=== PATIENT | female | born 1970 | race Caucasian/White ===

== ENCOUNTER → 2016-08-18 | Outpatient (CLI) | payer BC | END | disposition home or self-care (01) | LOC: CFH 15:24 | PROVIDERS: ATTEND Nurse Practitioner | DX: R06.02 Shortness of breath (principal) | CPT/HCPCS: 71250 ==

== ENCOUNTER 2016-11-06 09:35 | Emergency (ER) | payer BC ==
[~2016-11-06] VITALS: Ht 165.1 cm; Wt 97.6 kg
[2016-11-06] MEDS ORDERED: FLUT1AER INH (10:21)
[2016-11-06] MEDS ORDERED: VENL150C PO (10:21)
[2016-11-06] MEDS ORDERED: SODIUM CHLORIDE 0.9% 1,000ML IVBOLUS ONE (10:30)
[2016-11-06] MEDS ORDERED: SODIUM CHLORIDE FLUSH 10ML SYR IVF ONE (10:30)
[2016-11-06 10:42] LABS: HEMATOCRIT 44.4 % (34.6-47.8); HEMOGLOBIN 14.9 g/dL (11.7-16.4); WHITE BLOOD COUNT 16.3 x10^3/uL (3.4-10)
[2016-11-06 10:55] LABS: BLOOD UREA NITROGEN 14 mg/dL (7-18)
[2016-11-06] MEDS ORDERED: ONDANSETRON 2MG/ML, 2ML IVPush ONE (11:00)
[2016-11-06] MEDS ORDERED: methylPREDNISolone SOD SUCC 125 MG/2 ML IVPush ONE (11:00)
[2016-11-06] MEDS ORDERED: ALBUTEROL/IPRATROPIUM 2.5MG/0.5MG, 3 ML NPPB ONE (11:00)
[2016-11-06 11:01] LABS: ASPARTATE AMINO TRANSFERASE 19 U/L (15-37)
[2016-11-06] MEDS ORDERED: methylPREDNISolone SOD SUCC 125 MG/2 ML ONE (11:15)
[2016-11-06] MEDS ORDERED: ONDANSETRON 2MG/ML, 2ML ONE (11:16)
[2016-11-06] MEDS ORDERED: ALBUTEROL/IPRATROPIUM 2.5MG/0.5MG, 3 ML ONE (12:10)
[2016-11-06 12:31] LABS: RAPID INFLUENZA A Negative (Negative); RAPID INFLUENZA B Negative (Negative)
[2016-11-06 12:50] VITALS: BP 122/76
== END 2016-11-06 13:13 | disposition home or self-care (01) ==
LOC: ED 12:32
DX: B34.9 Viral infection, unspecified (principal); J45.909 Unspecified asthma, uncomplicated; Z87.891 Personal history of nicotine dependence
CPT/HCPCS: 36415; 71010; 80053; 81001; 83690; 84703; 85025; 87086; 87400; 94640; 96361; 96374; 96375; 99285; J2405; J2930; J7030; J7620